=== PATIENT | male | born 1965 | race Caucasian/White ===

== ENCOUNTER 2020-11-26 21:06 | Inpatient (IN) | payer OTHER ==
[2020-11-26] MEDS ORDERED: HYDROCORTISONE SOD SUCCINATE 100 MG/2 ML VIAL IVPUSH ONE (21:27)
[2020-11-26] MEDS ORDERED: SODIUM CHLORIDE 0.9% 500 ML INFUS.BAG IV ONE (21:27)
[2020-11-26] MEDS ORDERED: HYDROCORTISONE SOD SUCCINATE 100 MG/2 ML VIAL ONE (21:53)
[2020-11-26 21:59] LABS: BASO % 0.6 % (0-2.0); EOS % 10.3 % (0-4.5); HEMATOCRIT 42.3 % (35.4-49); HEMOGLOBIN 14.8 GM/dL (11.7-16.9); LYMPH % 40.7 % (8-40); MCH 29.1 pg (25.7-33.7); MEAN CELL VOLUME 83.2 fl (80-96); MONO % 17.2 % (3.8-10.2); NEUT % 31.2 % (42.8-82.8); PLATELET COUNT 302 10^3/uL (134-434); RBC 5.08 M/mm3 (4.00-5.60); RDW 16.8 % (11.9-15.9); WHITE BLOOD COUNT 7.8 K/mm3 (4.0-10.0)
[2020-11-26 22:20] LABS: CALCIUM 8.9 mg/dL (8.5-10.1)
[2020-11-26 22:21] LABS: ALBUMIN 3.2 g/dl (3.4-5.0); BLOOD UREA NITROGEN 4.4 mg/dL (7-18)
[2020-11-26 22:24] LABS: CREATININE 0.9 mg/dL (0.55-1.3)
[2020-11-26 22:26] LABS: BILIRUBIN,TOTAL 1.3 mg/dL (0.2-1); TOT PROT 6.4 g/dl (6.4-8.2)
[2020-11-27 01:23] LABS: PH,URINE 5.5 (5.0-8.0); URINE APPEARANCE CLEAR; URINE BILIRUBIN 2+ (NEGATIVE); URINE COLOR DK YELLOW; URINE GLUCOSE (UA) NEGATIVE (NEGATIVE); URINE KETONE 1+ (NEGATIVE); URINE LEUK ESTERASE NEGATIVE (NEGATIVE); URINE NITRITE NEGATIVE (NEGATIVE); URINE PROTEIN NEGATIVE (NEGATIVE)
[2020-11-27] MEDS ORDERED: ALBUTEROL SO4 HFA INHALER IH PRN (01:54)
[2020-11-27] MEDS ORDERED: SODIUM CHLORIDE 500 ML IV STA (02:22)
[2020-11-27 03:04] VITALS: BMI 39.6
[2020-11-27] MEDS: SODIUM CHLORIDE 1,000 ML IV SCH (03:25)
[2020-11-27] MEDS: HYDROCORTISONE SOD SUCCINATE 100 MG/2 ML VIAL IVPUSH SCH ×3 (05:31→17:58)
[2020-11-27] MEDS: INSULIN SLIDING SCALE (NOVOLOG) 1 VIAL SQ SCH ×4 (06:22→22:33)
[2020-11-27 07:20] LABS: BASO % 0.6 % (0-2.0); EOS % 0.1 % (0-4.5); HEMATOCRIT 42.2 % (35.4-49); HEMOGLOBIN 14.8 GM/dL (11.7-16.9); LYMPH % 26.4 % (8-40); MEAN CELL VOLUME 82.8 fl (80-96); MONO % 6.7 % (3.8-10.2); NEUT % 66.2 % (42.8-82.8); PLATELET COUNT 266 10^3/uL (134-434); RDW 16.9 % (11.9-15.9); WHITE BLOOD COUNT 5.2 K/mm3 (4.0-10.0)
[2020-11-27 07:35] LABS: ALBUMIN 3.2 g/dl (3.4-5.0); CALCIUM 8.9 mg/dL (8.5-10.1)
[2020-11-27 07:36] LABS: BLOOD UREA NITROGEN 5.2 mg/dL (7-18); MAGNESIUM 1.9 mg/dL (1.8-2.4)
[2020-11-27 07:39] LABS: CREATININE 0.9 mg/dL (0.55-1.3)
[2020-11-27 07:40] LABS: BILIRUBIN,TOTAL 1.1 mg/dL (0.2-1); TOT PROT 6.6 g/dl (6.4-8.2)
[2020-11-27] MEDS ORDERED: PT OWN MED DRAWER 7, Y5N ONE ×4 (09:11→15:33)
[2020-11-27] MEDS: ENOXAPARIN NA (PORCINE) 40 MG/0.4 ML DISP.SYRIN SQ SCH ×2 (09:18→22:32)
[2020-11-27] MEDS: GABAPENTIN 100 MG CAPSULE PO SCH ×2 (09:19→22:32)
[2020-11-27] MEDS: SILVER SULFADIAZINE 1% TOP CREAM 50 GM JAR TP SCH ×2 (09:19→22:39)
[2020-11-27] MEDS: MUPIROCIN 2% TOPICAL OINTMENT FOR DECOLONIZATION NS SCH ×2 (09:19→22:32)
[2020-11-27] MEDS: DOCUSATE SODIUM 100 MG CAPSULE (FP) PO SCH (09:20)
[2020-11-27] MEDS: FAMOTIDINE 20 MG TABLET PO SCH ×2 (09:20→22:32)
[2020-11-27] MEDS: NYSTATIN POWDER 100,000 UNITS/GM - 15 GM TOPICAL POWDER TP SCH (09:21)
[2020-11-27] MEDS ORDERED: PATIENT'S OWN MEDICATION (NON-FORMULARY) (Levothyroxine [Synthroid -] 175 MCG Tablet) PO SCH (10:00)
[2020-11-27] MEDS ORDERED: DESMOPRESSIN ACETATE NS SCH (10:00)
[2020-11-27] MEDS ORDERED: ENOXAPARIN NA (PORCINE) 40 MG/0.4 ML DISP.SYRIN SQ SCH (10:00)
[2020-11-27] MEDS ORDERED: ASPIRIN 325 MG TABLET PO SCH (10:00)
[2020-11-27] MEDS ORDERED: [UNRECOGNIZED DRUG - OTHER] NS SCH (10:00)
[2020-11-27] MEDS ORDERED: NYSTATIN POWDER 100,000 UNITS/GM - 15 GM TOPICAL POWDER TP SCH (10:00)
[2020-11-27] MEDS: ASPIRIN 81 MG CHEWABLE TABLETS PO SCH (10:20)
[2020-11-27] MEDS: DESMOPRESSIN ACETATE 0.1 MG TABLET PO SCH (15:37)
[2020-11-27] MEDS ORDERED: MELATONIN 1 MG TABLET PO SCH (22:00)
[2020-11-27] MEDS ORDERED: SENNOSIDES 8.6MG TABLET (FP) PO SCH (22:00)
[2020-11-27] MEDS ORDERED: ATORVASTATIN CA 40 MG TABLET (FP) PO SCH (22:00)
[2020-11-27] MEDS ORDERED: CHLORHEXIDINE GLUCONATE 4% CLEANSER FOR DECOLONIZATION TP SCH (22:00)
[2020-11-27] MEDS: LEVOTHYROXINE PO SCH (22:32)
[2020-11-28] MEDS: SODIUM CHLORIDE 1,000 ML IV SCH ×2 (06:50→10:36)
[2020-11-28] MEDS: INSULIN SLIDING SCALE (NOVOLOG) 1 VIAL SQ SCH ×4 (07:01→22:02)
[2020-11-28] MEDS: LEVOTHYROXINE PO SCH (08:00)
[2020-11-28] MEDS ORDERED: PT OWN MED DRAWER 7, Y5N ONE ×2 (09:39→22:00)
[2020-11-28] MEDS: DOCUSATE SODIUM 100 MG CAPSULE (FP) PO SCH (09:42)
[2020-11-28] MEDS: DESMOPRESSIN ACETATE 0.1 MG TABLET PO SCH (09:43)
[2020-11-28] MEDS: GABAPENTIN 100 MG CAPSULE PO SCH ×2 (09:44→22:01)
[2020-11-28] MEDS: ENOXAPARIN NA (PORCINE) 40 MG/0.4 ML DISP.SYRIN SQ SCH ×2 (09:44→22:03)
[2020-11-28] MEDS: ASPIRIN 81 MG CHEWABLE TABLETS PO SCH (09:44)
[2020-11-28] MEDS: FAMOTIDINE 20 MG TABLET PO SCH ×2 (09:44→22:02)
[2020-11-28] MEDS: SILVER SULFADIAZINE 1% TOP CREAM 50 GM JAR TP SCH ×2 (09:46→22:02)
[2020-11-28] MEDS: NYSTATIN POWDER 100,000 UNITS/GM - 15 GM TOPICAL POWDER TP SCH (09:46)
[2020-11-28] MEDS ORDERED: HYDROCORTISONE SOD SUCCINATE 100 MG/2 ML VIAL IVPUSH SCH (10:00)
[2020-11-28] MEDS: MUPIROCIN 2% TOPICAL OINTMENT FOR DECOLONIZATION NS SCH (10:24)
[2020-11-28] MEDS ORDERED: ALBUTEROL SO4 HFA INHALER IH PRN (10:36)
[2020-11-28] MEDS ORDERED: INSULIN SLIDING SCALE (NOVOLOG) 1 VIAL SQ SCH (11:00)
[2020-11-28] MEDS: AMINO ACIDS/PROTEIN HYDROLYS 30 ML LIQUID.PKT PO SCH (18:10)
[2020-11-28] MEDS ORDERED: CHLORHEXIDINE GLUCONATE 4% CLEANSER FOR DECOLONIZATION TP SCH (22:00)
[2020-11-28] MEDS ORDERED: MUPIROCIN 2% TOPICAL OINTMENT FOR DECOLONIZATION NS SCH (22:00)
[2020-11-28] MEDS ORDERED: MELATONIN 5 MG, MELATONIN 1 MG PO SCH (22:00)
[2020-11-28] MEDS: ATORVASTATIN CA 40 MG TABLET (FP) PO SCH (22:01)
[2020-11-28] MEDS: SENNOSIDES 8.6MG TABLET (FP) PO SCH (22:02)
[2020-11-28] MEDS: HYDROCORTISONE SOD SUCCINATE 100 MG/2 ML VIAL IVPUSH SCH (22:02)
[2020-11-28] MEDS: MELATONIN 5 MG, MELATONIN 1 MG PO SCH (22:02)
[2020-11-29] MEDS ORDERED: LEVOTHYROXINE NA 100 MCG TABLET (FP) ONE (06:07)
[2020-11-29] MEDS ORDERED: LEVOTHYROXINE NA 75 MCG TABLET (FP) ONE (06:08)
[2020-11-29] MEDS: LEVOTHYROXINE PO SCH (06:09)
[2020-11-29] MEDS: SODIUM CHLORIDE 1,000 ML IV SCH ×2 (06:09→11:20)
[2020-11-29] MEDS: INSULIN SLIDING SCALE (NOVOLOG) 1 VIAL SQ SCH ×4 (06:20→22:15)
[2020-11-29] MEDS ORDERED: PT OWN MED DRAWER 7, Y5N ONE ×2 (09:49→21:52)
[2020-11-29] MEDS: GABAPENTIN 100 MG CAPSULE PO SCH ×2 (10:05→22:10)
[2020-11-29] MEDS: DOCUSATE SODIUM 100 MG CAPSULE (FP) PO SCH (10:05)
[2020-11-29] MEDS: ASPIRIN 81 MG CHEWABLE TABLETS PO SCH (10:05)
[2020-11-29] MEDS: ENOXAPARIN NA (PORCINE) 40 MG/0.4 ML DISP.SYRIN SQ SCH ×2 (10:05→22:10)
[2020-11-29] MEDS: FAMOTIDINE 20 MG TABLET PO SCH ×2 (10:06→22:10)
[2020-11-29] MEDS: NYSTATIN POWDER 100,000 UNITS/GM - 15 GM TOPICAL POWDER TP SCH (10:06)
[2020-11-29] MEDS: AMINO ACIDS/PROTEIN HYDROLYS 30 ML LIQUID.PKT PO SCH ×3 (10:06→17:13)
[2020-11-29] MEDS: DESMOPRESSIN ACETATE 0.1 MG TABLET PO SCH (10:07)
[2020-11-29] MEDS: SILVER SULFADIAZINE 1% TOP CREAM 50 GM JAR TP SCH ×2 (10:07→22:15)
[2020-11-29] MEDS: HYDROCORTISONE SOD SUCCINATE 100 MG/2 ML VIAL IVPUSH SCH ×2 (11:20→22:11)
[2020-11-29] MEDS ORDERED: MELATONIN 1 MG TABLET PO SCH (22:00)
[2020-11-29] MEDS: ATORVASTATIN CA 40 MG TABLET (FP) PO SCH (22:10)
[2020-11-29] MEDS: SENNOSIDES 8.6MG TABLET (FP) PO SCH (22:15)
[2020-11-30] MEDS ORDERED: ACETAMINOPHEN 325 MG TABLET (FP) PO ONE (05:01)
[2020-11-30] MEDS ORDERED: LEVOTHYROXINE NA 100 MCG TABLET (FP) ONE (05:44)
[2020-11-30] MEDS ORDERED: LEVOTHYROXINE NA 75 MCG TABLET (FP) ONE (05:44)
[2020-11-30] MEDS: LEVOTHYROXINE PO SCH (06:13)
[2020-11-30] MEDS: SODIUM CHLORIDE 1,000 ML IV SCH ×2 (06:13→11:33)
[2020-11-30] MEDS: INSULIN SLIDING SCALE (NOVOLOG) 1 VIAL SQ SCH ×4 (06:17→22:07)
[2020-11-30] MEDS: AMINO ACIDS/PROTEIN HYDROLYS 30 ML LIQUID.PKT PO SCH ×4 (09:17→17:50)
[2020-11-30] MEDS ORDERED: PT OWN MED DRAWER 7, Y5N ONE (10:00)
[2020-11-30] MEDS: DESMOPRESSIN ACETATE 0.1 MG TABLET PO SCH (10:19)
[2020-11-30] MEDS: ASPIRIN 81 MG CHEWABLE TABLETS PO SCH (10:19)
[2020-11-30] MEDS: HYDROCORTISONE SOD SUCCINATE 100 MG/2 ML VIAL IVPUSH SCH (10:19)
[2020-11-30] MEDS: ENOXAPARIN NA (PORCINE) 40 MG/0.4 ML DISP.SYRIN SQ SCH ×2 (10:19→22:06)
[2020-11-30] MEDS: SILVER SULFADIAZINE 1% TOP CREAM 50 GM JAR TP SCH ×2 (10:20→22:07)
[2020-11-30] MEDS: GABAPENTIN 100 MG CAPSULE PO SCH ×2 (10:20→22:06)
[2020-11-30] MEDS: DOCUSATE SODIUM 100 MG CAPSULE (FP) PO SCH (10:20)
[2020-11-30] MEDS: FAMOTIDINE 20 MG TABLET PO SCH ×2 (10:20→22:06)
[2020-11-30] MEDS: NYSTATIN POWDER 100,000 UNITS/GM - 15 GM TOPICAL POWDER TP SCH (10:20)
[2020-11-30 17:08] LABS: RENIN ACTIVITY(PRA) 24.623 ng/mL/hr (0.167-5.380)
[2020-11-30] MEDS ORDERED: MELATONIN 5 MG TABLETS ONE (20:59)
[2020-11-30] MEDS ORDERED: MELATONIN 1 MG TABLET ONE (21:00)
[2020-11-30] MEDS: SENNOSIDES 8.6MG TABLET (FP) PO SCH (22:06)
[2020-11-30] MEDS: ATORVASTATIN CA 40 MG TABLET (FP) PO SCH (22:06)
[2020-11-30] MEDS: MELATONIN 5 MG, MELATONIN 1 MG PO SCH (22:06)
[2020-12-01] MEDS: SODIUM CHLORIDE 1,000 ML IV SCH ×2 (02:11→12:17)
[2020-12-01] MEDS ORDERED: LEVOTHYROXINE NA 75 MCG TABLET (FP) ONE (06:21)
[2020-12-01] MEDS ORDERED: LEVOTHYROXINE NA 100 MCG TABLET (FP) ONE (06:21)
[2020-12-01] MEDS: LEVOTHYROXINE PO SCH (06:31)
[2020-12-01] MEDS: INSULIN SLIDING SCALE (NOVOLOG) 1 VIAL SQ SCH ×3 (06:36→16:34)
[2020-12-01] MEDS: AMINO ACIDS/PROTEIN HYDROLYS 30 ML LIQUID.PKT PO SCH ×4 (08:25→17:41)
[2020-12-01] MEDS ORDERED: PT OWN MED DRAWER 7, Y5N ONE ×2 (09:29→12:15)
[2020-12-01] MEDS: ASPIRIN 81 MG CHEWABLE TABLETS PO SCH (09:31)
[2020-12-01] MEDS: DESMOPRESSIN ACETATE 0.1 MG TABLET PO SCH (09:32)
[2020-12-01] MEDS: GABAPENTIN 100 MG CAPSULE PO SCH (09:32)
[2020-12-01] MEDS: DOCUSATE SODIUM 100 MG CAPSULE (FP) PO SCH (09:32)
[2020-12-01] MEDS: FAMOTIDINE 20 MG TABLET PO SCH (09:33)
[2020-12-01] MEDS: ENOXAPARIN NA (PORCINE) 40 MG/0.4 ML DISP.SYRIN SQ SCH (09:33)
[2020-12-01] MEDS: NYSTATIN POWDER 100,000 UNITS/GM - 15 GM TOPICAL POWDER TP SCH (09:33)
[2020-12-01] MEDS: SILVER SULFADIAZINE 1% TOP CREAM 50 GM JAR TP SCH (11:27)
[2020-12-01] MEDS ORDERED: HYDROCORTISONE 20 MG TABLET PO SCH (11:45)
[2020-12-01 15:20] VITALS: BP 140/81; PULSE 90; TEMP 98.4
[2020-12-01 16:35] LABS: BASO % 0.4 % (0-2.0); HEMATOCRIT 37.7 % (35.4-49); HEMOGLOBIN 13.3 GM/dL (11.7-16.9); LYMPH % 31.6 % (8-40); MCH 29.4 pg (25.7-33.7); MCHC 35.2 g/dl (32.0-35.9); MEAN CELL VOLUME 83.5 fl (80-96); MEAN PLT VOLUME 8.8 fl (7.5-11.1); MONO % 12.1 % (3.8-10.2); NEUT % 50.9 % (42.8-82.8); PLATELET COUNT 224 10^3/uL (134-434); RBC 4.52 M/mm3 (4.00-5.60); RDW 16.8 % (11.9-15.9); WHITE BLOOD COUNT 7.2 K/mm3 (4.0-10.0)
[2020-12-01 17:00] LABS: ALBUMIN 3.4 g/dl (3.4-5.0); BLOOD UREA NITROGEN 5.6 mg/dL (7-18); CALCIUM 8.4 mg/dL (8.5-10.1); MAGNESIUM 2.1 mg/dL (1.8-2.4)
[2020-12-01 17:04] LABS: CREATININE 0.8 mg/dL (0.55-1.3); PHOSPHOROUS 3.1 mg/dL (2.5-4.9)
[2020-12-01 17:05] LABS: BILIRUBIN,TOTAL 0.6 mg/dL (0.2-1); TOT PROT 6.3 g/dl (6.4-8.2)
== END 2020-12-01 20:45 | DRG 644 ==
LOC: JER 21:06 → JICU 22:29 → JERBED 11-27 00:17 → JICU 11-27 02:37 → J8W 11-29 00:20
PROVIDERS: ADMIT Internal Medicine Pulmonary Disease; ATTEND Internal Medicine
DX: E27.49 Other adrenocortical insufficiency (principal); I69.354 Hemiplegia and hemiparesis following cerebral infarction affecting left non-dominant side; E87.1 Hypo-osmolality and hyponatremia; E23.2 Diabetes insipidus; E23.0 Hypopituitarism; E27.2 Addisonian crisis; E66.01 Morbid (severe) obesity due to excess calories; Z86.16 Personal history of COVID-19; I45.10 Unspecified right bundle-branch block; R94.31 Abnormal electrocardiogram [ECG] [EKG]; R21 Rash and other nonspecific skin eruption; Z68.39 Body mass index [BMI] 39.0-39.9, adult; R13.10 Dysphagia, unspecified; R27.0 Ataxia, unspecified
CPT/HCPCS: 36415; 71045-TC-FY; 80053; 81003; 82024; 82088; 82533; 82962; 83036; 83735; 84100; 84244; 84439; 84443; 85025; 93005; 93010; 97116-GP; 97163-GP; 99285-25; C9803; U0003; U0005

== ENCOUNTER 2020-12-28 14:50 | Inpatient (IN) | payer OTHER ==
[2020-12-28] MEDS ORDERED: ACETAMINOPHEN 1000 MG/100 ML VIAL (NON FORMULARY) IVPB ONE (16:57)
[2020-12-28 18:03] LABS: BASO % 0.3 % (0-2.0); EOS % 3.6 % (0-4.5); HEMATOCRIT 31.1 % (35.4-49); HEMOGLOBIN 11.2 GM/dL (11.7-16.9); LYMPH % 23.8 % (8-40); MEAN CELL VOLUME 83.2 fl (80-96); MEAN PLT VOLUME 7.3 fl (7.5-11.1); MONO % 10.8 % (3.8-10.2); NEUT % 61.5 % (42.8-82.8); PLATELET COUNT 248 10^3/uL (134-434); RBC 3.74 M/mm3 (4.00-5.60); RDW 16.4 % (11.9-15.9); WHITE BLOOD COUNT 8.8 K/mm3 (4.0-10.0)
[2020-12-28 18:06] LABS: PH,URINE 6.5 (5.0-8.0); URINE APPEARANCE CLEAR; URINE BILIRUBIN NEGATIVE (NEGATIVE); URINE COLOR YELLOW; URINE GLUCOSE (UA) NEGATIVE (NEGATIVE); URINE KETONE NEGATIVE (NEGATIVE); URINE LEUK ESTERASE NEGATIVE (NEGATIVE); URINE NITRITE NEGATIVE (NEGATIVE); URINE PROTEIN NEGATIVE (NEGATIVE); URINE UROBILINOGEN 0.2 mg/dL (0.2-1.0)
[2020-12-28 18:19] LABS: INR 1.1 (0.83-1.09); PROTHROMBIN TIME (PATIENT) 13.3 SEC (9.7-13.0)
[2020-12-28 18:30] LABS: CALCIUM 8.2 mg/dL (8.5-10.1)
[2020-12-28 18:31] LABS: BLOOD UREA NITROGEN 10.5 mg/dL (7-18)
[2020-12-28 18:34] LABS: CREATININE 0.7 mg/dL (0.55-1.3)
[2020-12-28 18:36] LABS: BILIRUBIN,TOTAL 0.6 mg/dL (0.2-1); TOT PROT 5.8 g/dl (6.4-8.2)
[2020-12-28] MEDS ORDERED: SODIUM CHLORIDE 1,000 ML IV SCH (23:30)
[2020-12-29 00:07] LABS: CALCIUM 7.9 mg/dL (8.5-10.1)
[2020-12-29 00:08] LABS: BLOOD UREA NITROGEN 8.5 mg/dL (7-18)
[2020-12-29 00:11] LABS: CREATININE 0.6 mg/dL (0.55-1.3)
[2020-12-29] MEDS ORDERED: SODIUM CHLORIDE 1,000 ML IV SCH ×2 (02:22→15:28)
[2020-12-29 07:07] LABS: BLOOD UREA NITROGEN 7.2 mg/dL (7-18); CALCIUM 8.1 mg/dL (8.5-10.1)
[2020-12-29 07:09] LABS: MAGNESIUM 1.9 mg/dL (1.8-2.4)
[2020-12-29 07:11] LABS: CREATININE 0.7 mg/dL (0.55-1.3); PHOSPHOROUS 3.9 mg/dL (2.5-4.9)
[2020-12-29] MEDS: LEVOTHYROXINE PO SCH (10:00)
[2020-12-29] MEDS ORDERED: DESMOPRESSIN ACETATE NS SCH (10:00)
[2020-12-29] MEDS ORDERED: PATIENT'S OWN MEDICATION (NON-FORMULARY) (Levothyroxine [Synthroid -] 175 MCG Tablet) PO SCH (10:00)
[2020-12-29] MEDS ORDERED: [UNRECOGNIZED DRUG - OTHER] NS SCH (10:00)
[2020-12-29 10:02] LABS: BASO % 0.3 % (0-2.0); EOS % 5.9 % (0-4.5); HEMATOCRIT 33.2 % (35.4-49); HEMOGLOBIN 12.1 GM/dL (11.7-16.9); LYMPH % 29.6 % (8-40); MCH 30.4 pg (25.7-33.7); MCHC 36.4 g/dl (32.0-35.9); MEAN CELL VOLUME 83.6 fl (80-96); MEAN PLT VOLUME 7.9 fl (7.5-11.1); MONO % 13.3 % (3.8-10.2); NEUT % 50.9 % (42.8-82.8); PLATELET COUNT 274 10^3/uL (134-434); RBC 3.97 M/mm3 (4.00-5.60); RDW 16.7 % (11.9-15.9); RETICULOCYTES 2.35 % (0.5-1.5); WHITE BLOOD COUNT 9.3 K/mm3 (4.0-10.0)
[2020-12-29] MEDS ORDERED: FAMOTIDINE 20 MG TABLET ONE (10:44)
[2020-12-29] MEDS ORDERED: GABAPENTIN 100 MG CAPSULE ONE (10:45)
[2020-12-29] MEDS ORDERED: ENOXAPARIN NA (PORCINE) 40 MG/0.4 ML DISP.SYRIN SQ ONE (10:45)
[2020-12-29] MEDS ORDERED: ATORVASTATIN CA 40 MG TABLET (FP) ONE (10:45)
[2020-12-29] MEDS: FAMOTIDINE 20 MG TABLET PO SCH ×2 (10:55→21:38)
[2020-12-29] MEDS: ENOXAPARIN NA (PORCINE) 40 MG/0.4 ML DISP.SYRIN SQ SCH (10:55)
[2020-12-29] MEDS: GABAPENTIN 100 MG CAPSULE PO SCH ×2 (10:55→21:37)
[2020-12-29 11:51] LABS: CALCIUM 8.3 mg/dL (8.5-10.1)
[2020-12-29 11:52] LABS: BLOOD UREA NITROGEN 7.3 mg/dL (7-18)
[2020-12-29 11:55] LABS: CREATININE 0.8 mg/dL (0.55-1.3)
[2020-12-29] MEDS ORDERED: MECLIZINE HCL 25 MG TABLET (FP) PO PRN (15:31)
[2020-12-29] MEDS ORDERED: NITROGLYCERIN SUBLINGUAL 1/150 0.4 MG TAB SL PRN (15:31)
[2020-12-29] MEDS ORDERED: BISACODYL 10 MG SUPP.RECT RC PRN (15:31)
[2020-12-29] MEDS ORDERED: ALBUTEROL SO4 HFA INHALER IH PRN (15:31)
[2020-12-29] MEDS: HYDROCORTISONE 20 MG TABLET PO SCH ×2 (17:32→21:38)
[2020-12-29] MEDS ORDERED: PT OWN MED DRAWER 7, Y5N ONE (21:19)
[2020-12-29] MEDS: SENNOSIDES 8.6MG TABLET (FP) PO SCH (21:37)
[2020-12-29] MEDS: MELATONIN 5 MG TABLETS PO SCH (21:37)
[2020-12-29] MEDS: ATORVASTATIN CA 40 MG TABLET (FP) PO SCH (21:38)
[2020-12-29] MEDS: SILVER SULFADIAZINE 1% TOP CREAM 50 GM JAR TP SCH (21:38)
[2020-12-29] MEDS: TOLNAFTATE 1% POWDER 45 GM POW TP SCH (21:39)
[2020-12-29 21:58] LABS: BLOOD UREA NITROGEN 8.3 mg/dL (7-18)
[2020-12-29 22:01] LABS: CREATININE 0.8 mg/dL (0.55-1.3)
[2020-12-30] MEDS ORDERED: LEVOTHYROXINE NA 150 MCG TABLET ONE (06:11)
[2020-12-30] MEDS ORDERED: LEVOTHYROXINE NA 125 MCG TABLET (FP) ONE (06:12)
[2020-12-30] MEDS: LEVOTHYROXINE PO SCH (06:30)
[2020-12-30] MEDS ORDERED: PT OWN MED DRAWER 7, Y5N ONE (06:54)
[2020-12-30] MEDS ORDERED: LYTES/YERBA SANTA 240 ML BOTTLE MM SCH (10:00)
[2020-12-30] MEDS: ASPIRIN COATED 81 MG TABLET.EC PO SCH (10:35)
[2020-12-30] MEDS: GABAPENTIN 100 MG CAPSULE PO SCH ×2 (10:35→22:19)
[2020-12-30] MEDS: HYDROCORTISONE 20 MG TABLET PO SCH ×2 (10:35→22:53)
[2020-12-30] MEDS: FAMOTIDINE 20 MG TABLET PO SCH ×2 (10:35→22:19)
[2020-12-30] MEDS: ENOXAPARIN NA (PORCINE) 40 MG/0.4 ML DISP.SYRIN SQ SCH (10:35)
[2020-12-30] MEDS: POLYETHYLENE GLYCOL (HEALTHYLAX) 3350 17 GM PACKET PO SCH (10:35)
[2020-12-30] MEDS: DOCUSATE SODIUM 100 MG CAPSULE (FP) PO SCH (10:35)
[2020-12-30] MEDS: SILVER SULFADIAZINE 1% TOP CREAM 50 GM JAR TP SCH ×2 (10:36→22:27)
[2020-12-30] MEDS: MINERAL OIL/PETROLAT/WATER TOPICAL CREAM 113 GM JAR TP SCH (10:36)
[2020-12-30] MEDS ORDERED: HYDROCORTISONE 1% TOPICAL CREAM 30 GM TUBE TP PRN (10:37)
[2020-12-30] MEDS: TOLNAFTATE 1% POWDER 45 GM POW TP SCH ×2 (10:37→22:28)
[2020-12-30] MEDS: MAG HYDROX/AL HYDROX/SIMETH 30 ML UNIT-DOSE CUP PO SCH (10:44)
[2020-12-30 12:03] LABS: HEMATOCRIT 36.9 % (35.4-49); HEMOGLOBIN 13.1 GM/dL (11.7-16.9); MCHC 35.5 g/dl (32.0-35.9); MEAN CELL VOLUME 84.5 fl (80-96); MEAN PLT VOLUME 7.8 fl (7.5-11.1); PLATELET COUNT 343 10^3/uL (134-434); RBC 4.37 M/mm3 (4.00-5.60); WHITE BLOOD COUNT 11.8 K/mm3 (4.0-10.0)
[2020-12-30] MEDS: LYTES/YERBA SANTA 240 ML BOTTLE MM SCH ×2 (12:08→17:12)
[2020-12-30] MEDS: HYDROCORTISONE 1% TOPICAL CREAM 30 GM TUBE TP SCH ×2 (12:08→22:53)
[2020-12-30 12:23] LABS: BLOOD UREA NITROGEN 9.2 mg/dL (7-18); CALCIUM 9.2 mg/dL (8.5-10.1); MAGNESIUM 2.6 mg/dL (1.8-2.4)
[2020-12-30 12:26] LABS: CREATININE 0.8 mg/dL (0.55-1.3); PHOSPHOROUS 4.4 mg/dL (2.5-4.9)
[2020-12-30] MEDS ORDERED: DESMOPRESSIN ACETATE 0.1 MG TABLET PO SCH ×3 (13:15→16:45)
[2020-12-30 16:40] VITALS: BMI 36.7
[2020-12-30] MEDS: ACETAMINOPHEN 325 MG TABLET (FP) PO PRN (18:14)
[2020-12-30 19:40] LABS: CALCIUM 8.7 mg/dL (8.5-10.1)
[2020-12-30 19:41] LABS: BLOOD UREA NITROGEN 8.4 mg/dL (7-18)
[2020-12-30 19:45] LABS: CREATININE 0.9 mg/dL (0.55-1.3)
[2020-12-30] MEDS: MELATONIN 5 MG TABLETS PO SCH (22:19)
[2020-12-30] MEDS: SENNOSIDES 8.6MG TABLET (FP) PO SCH (22:19)
[2020-12-30] MEDS: ATORVASTATIN CA 40 MG TABLET (FP) PO SCH (22:19)
[2020-12-31] MEDS: LYTES/YERBA SANTA 240 ML BOTTLE MM SCH ×4 (00:30→19:02)
[2020-12-31] MEDS ORDERED: LEVOTHYROXINE NA 150 MCG TABLET ONE (06:20)
[2020-12-31] MEDS ORDERED: LEVOTHYROXINE NA 125 MCG TABLET (FP) ONE (06:21)
[2020-12-31] MEDS: LEVOTHYROXINE PO SCH (06:49)
[2020-12-31] MEDS: AMINO ACIDS/PROTEIN HYDROLYS 30 ML LIQUID.PKT PO SCH (08:10)
[2020-12-31] MEDS: ASPIRIN COATED 81 MG TABLET.EC PO SCH (09:54)
[2020-12-31] MEDS: ENOXAPARIN NA (PORCINE) 40 MG/0.4 ML DISP.SYRIN SQ SCH (09:54)
[2020-12-31] MEDS: MAG HYDROX/AL HYDROX/SIMETH 30 ML UNIT-DOSE CUP PO SCH (09:54)
[2020-12-31] MEDS: GABAPENTIN 100 MG CAPSULE PO SCH ×2 (09:55→21:33)
[2020-12-31] MEDS: FAMOTIDINE 20 MG TABLET PO SCH ×2 (09:55→21:33)
[2020-12-31] MEDS: HYDROCORTISONE 20 MG TABLET PO SCH ×2 (09:55→21:59)
[2020-12-31] MEDS: DESMOPRESSIN ACETATE 0.1 MG TABLET PO SCH (09:55)
[2020-12-31] MEDS: DOCUSATE SODIUM 100 MG CAPSULE (FP) PO SCH (09:55)
[2020-12-31] MEDS: HYDROCORTISONE 1% TOPICAL CREAM 30 GM TUBE TP SCH ×2 (09:57→21:33)
[2020-12-31] MEDS: MINERAL OIL/PETROLAT/WATER TOPICAL CREAM 113 GM JAR TP SCH (09:57)
[2020-12-31] MEDS: TOLNAFTATE 1% POWDER 45 GM POW TP SCH ×2 (09:58→21:33)
[2020-12-31] MEDS: SILVER SULFADIAZINE 1% TOP CREAM 50 GM JAR TP SCH ×2 (09:58→21:33)
[2020-12-31] MEDS: POLYETHYLENE GLYCOL (HEALTHYLAX) 3350 17 GM PACKET PO SCH (09:58)
[2020-12-31] MEDS ORDERED: VANCOMYCIN 2,000 MG in DEXTROSE 5%-WATER - 500 ML IVPB ONE (10:00)
[2020-12-31] MEDS: ACETAMINOPHEN 325 MG TABLET (FP) PO PRN ×2 (10:12→21:35)
[2020-12-31 11:25] LABS: HEMATOCRIT 39.2 % (35.4-49); HEMOGLOBIN 13.7 GM/dL (11.7-16.9); MCH 30.1 pg (25.7-33.7); MEAN PLT VOLUME 7.9 fl (7.5-11.1); PLATELET COUNT 333 10^3/uL (134-434); RBC 4.56 M/mm3 (4.00-5.60); RDW 16.9 % (11.9-15.9); WHITE BLOOD COUNT 14.5 K/mm3 (4.0-10.0)
[2020-12-31 11:50] LABS: BLOOD UREA NITROGEN 9.6 mg/dL (7-18); CALCIUM 9.1 mg/dL (8.5-10.1)
[2020-12-31 11:51] LABS: MAGNESIUM 2.6 mg/dL (1.8-2.4)
[2020-12-31 11:52] LABS: CREATININE 1.2 mg/dL (0.55-1.3)
[2020-12-31 11:53] LABS: PHOSPHOROUS 4.1 mg/dL (2.5-4.9)
[2020-12-31] MEDS ORDERED: SODIUM CHLORIDE 1,000 ML IV SCH (18:00)
[2020-12-31] MEDS: MELATONIN 5 MG TABLETS PO SCH (21:33)
[2020-12-31] MEDS: VANCOMYCIN PREMIX 1.5 GM 1,500 MG/300 ML BAG IVPB SCH (21:33)
[2020-12-31] MEDS: SENNOSIDES 8.6MG TABLET (FP) PO SCH (21:33)
[2020-12-31] MEDS: ATORVASTATIN CA 40 MG TABLET (FP) PO SCH (21:33)
[2021-01-01] MEDS: LYTES/YERBA SANTA 240 ML BOTTLE MM SCH ×3 (00:10→21:16)
[2021-01-01] MEDS ORDERED: LEVOTHYROXINE NA 125 MCG TABLET (FP) ONE (06:26)
[2021-01-01] MEDS ORDERED: LEVOTHYROXINE NA 150 MCG TABLET ONE (06:26)
[2021-01-01] MEDS: LEVOTHYROXINE PO SCH (06:27)
[2021-01-01] MEDS ORDERED: INSULIN (LEVEMIR) 100 UNITS/ML UNITS SQ ONE (06:39)
[2021-01-01] MEDS ORDERED: VANCOMYCIN 1 GRAM (PRE-DOCKED) 1,000 MG/250 ML BAG IVPB SCH (10:00)
[2021-01-01] MEDS ORDERED: PT OWN MED DRAWER 7, Y5N ONE ×3 (10:07→21:12)
[2021-01-01] MEDS: GABAPENTIN 100 MG CAPSULE PO SCH ×2 (10:17→21:15)
[2021-01-01] MEDS: FAMOTIDINE 20 MG TABLET PO SCH ×2 (10:17→21:16)
[2021-01-01] MEDS: VANCOMYCIN PREMIX 1.5 GM 1,500 MG/300 ML BAG IVPB SCH (10:17)
[2021-01-01] MEDS: TOLNAFTATE 1% POWDER 45 GM POW TP SCH ×2 (10:17→21:17)
[2021-01-01] MEDS: HYDROCORTISONE 20 MG TABLET PO SCH ×2 (10:18→21:18)
[2021-01-01] MEDS: MINERAL OIL/PETROLAT/WATER TOPICAL CREAM 113 GM JAR TP SCH (10:18)
[2021-01-01] MEDS: POLYETHYLENE GLYCOL (HEALTHYLAX) 3350 17 GM PACKET PO SCH (10:18)
[2021-01-01] MEDS: ASPIRIN COATED 81 MG TABLET.EC PO SCH (10:18)
[2021-01-01] MEDS: DESMOPRESSIN ACETATE 0.1 MG TABLET PO SCH (10:18)
[2021-01-01] MEDS: ENOXAPARIN NA (PORCINE) 40 MG/0.4 ML DISP.SYRIN SQ SCH (10:18)
[2021-01-01] MEDS: MAG HYDROX/AL HYDROX/SIMETH 30 ML UNIT-DOSE CUP PO SCH (10:18)
[2021-01-01] MEDS: DOCUSATE SODIUM 100 MG CAPSULE (FP) PO SCH (10:18)
[2021-01-01] MEDS: HYDROCORTISONE 1% TOPICAL CREAM 30 GM TUBE TP SCH ×2 (10:18→21:16)
[2021-01-01] MEDS: SILVER SULFADIAZINE 1% TOP CREAM 50 GM JAR TP SCH ×2 (10:19→21:17)
[2021-01-01] MEDS: AMINO ACIDS/PROTEIN HYDROLYS 30 ML LIQUID.PKT PO SCH (10:19)
[2021-01-01 16:18] LABS: HEMATOCRIT 30.8 % (35.4-49); MCH 30.5 pg (25.7-33.7); MCHC 35.7 g/dl (32.0-35.9); MEAN CELL VOLUME 85.2 fl (80-96); MEAN PLT VOLUME 7.8 fl (7.5-11.1); PLATELET COUNT 284 10^3/uL (134-434); RBC 3.62 M/mm3 (4.00-5.60); RDW 16.2 % (11.9-15.9); WHITE BLOOD COUNT 10.4 K/mm3 (4.0-10.0)
[2021-01-01 16:51] LABS: BLOOD UREA NITROGEN 10.3 mg/dL (7-18); CALCIUM 8.1 mg/dL (8.5-10.1)
[2021-01-01 16:55] LABS: CREATININE 0.9 mg/dL (0.55-1.3); PHOSPHOROUS 4.3 mg/dL (2.5-4.9)
[2021-01-01] MEDS: CLINDAMYCIN 300 MG PREMIX IVPB 300 MG/50 ML BAG IVPB SCH ×2 (20:04→21:16)
[2021-01-01] MEDS ORDERED: CLINDAMYCIN 300 MG PREMIX IVPB 300 MG/50 ML BAG IVPB SCH (21:00)
[2021-01-01] MEDS: MELATONIN 5 MG TABLETS PO SCH (21:15)
[2021-01-01] MEDS: SENNOSIDES 8.6MG TABLET (FP) PO SCH (21:15)
[2021-01-01] MEDS: ATORVASTATIN CA 40 MG TABLET (FP) PO SCH (21:16)
[2021-01-02] MEDS: CLINDAMYCIN 300 MG PREMIX IVPB 300 MG/50 ML BAG IVPB SCH ×2 (02:01→09:16)
[2021-01-02] MEDS: LYTES/YERBA SANTA 240 ML BOTTLE MM SCH ×3 (02:04→18:31)
[2021-01-02] MEDS ORDERED: LEVOTHYROXINE NA 150 MCG TABLET ONE (05:54)
[2021-01-02] MEDS ORDERED: LEVOTHYROXINE NA 125 MCG TABLET (FP) ONE (05:54)
[2021-01-02] MEDS: LEVOTHYROXINE PO SCH (06:05)
[2021-01-02] MEDS ORDERED: PT OWN MED DRAWER 7, Y5N ONE ×2 (09:05→21:02)
[2021-01-02] MEDS: ENOXAPARIN NA (PORCINE) 40 MG/0.4 ML DISP.SYRIN SQ SCH (09:26)
[2021-01-02] MEDS: AMINO ACIDS/PROTEIN HYDROLYS 30 ML LIQUID.PKT PO SCH (09:26)
[2021-01-02] MEDS: HYDROCORTISONE 1% TOPICAL CREAM 30 GM TUBE TP SCH ×2 (09:28→21:12)
[2021-01-02] MEDS: DOCUSATE SODIUM 100 MG CAPSULE (FP) PO SCH (09:28)
[2021-01-02] MEDS: MINERAL OIL/PETROLAT/WATER TOPICAL CREAM 113 GM JAR TP SCH (09:28)
[2021-01-02] MEDS: POLYETHYLENE GLYCOL (HEALTHYLAX) 3350 17 GM PACKET PO SCH (09:28)
[2021-01-02] MEDS: GABAPENTIN 100 MG CAPSULE PO SCH ×2 (09:28→21:11)
[2021-01-02] MEDS: ASPIRIN COATED 81 MG TABLET.EC PO SCH (09:28)
[2021-01-02] MEDS: FAMOTIDINE 20 MG TABLET PO SCH ×2 (09:28→21:11)
[2021-01-02] MEDS: DESMOPRESSIN ACETATE 0.1 MG TABLET PO SCH (09:29)
[2021-01-02] MEDS: SILVER SULFADIAZINE 1% TOP CREAM 50 GM JAR TP SCH ×2 (09:29→21:13)
[2021-01-02] MEDS: TOLNAFTATE 1% POWDER 45 GM POW TP SCH ×2 (09:29→21:13)
[2021-01-02] MEDS: MAG HYDROX/AL HYDROX/SIMETH 30 ML UNIT-DOSE CUP PO SCH (09:29)
[2021-01-02] MEDS: HYDROCORTISONE 20 MG TABLET PO SCH ×2 (09:29→21:12)
[2021-01-02] MEDS ORDERED: SODIUM CHLORIDE IVPB ONE (14:00)
[2021-01-02] MEDS ORDERED: DAPTOMYCIN IVPB ONE (14:00)
[2021-01-02] MEDS: ACETAMINOPHEN 325 MG TABLET (FP) PO PRN (21:10)
[2021-01-02] MEDS: MELATONIN 5 MG TABLETS PO SCH (21:11)
[2021-01-02] MEDS: SENNOSIDES 8.6MG TABLET (FP) PO SCH (21:12)
[2021-01-03] MEDS: LYTES/YERBA SANTA 240 ML BOTTLE MM SCH ×4 (00:30→17:21)
[2021-01-03] MEDS ORDERED: LEVOTHYROXINE NA 150 MCG TABLET ONE (05:57)
[2021-01-03] MEDS ORDERED: LEVOTHYROXINE NA 125 MCG TABLET (FP) ONE (05:57)
[2021-01-03] MEDS: LEVOTHYROXINE PO SCH (06:01)
[2021-01-03] MEDS: FAMOTIDINE 20 MG TABLET PO SCH ×2 (11:29→21:22)
[2021-01-03] MEDS: ASPIRIN COATED 81 MG TABLET.EC PO SCH (11:29)
[2021-01-03] MEDS: DOCUSATE SODIUM 100 MG CAPSULE (FP) PO SCH (11:29)
[2021-01-03] MEDS: DESMOPRESSIN ACETATE 0.1 MG TABLET PO SCH (11:29)
[2021-01-03] MEDS: ENOXAPARIN NA (PORCINE) 40 MG/0.4 ML DISP.SYRIN SQ SCH (11:29)
[2021-01-03] MEDS: GABAPENTIN 100 MG CAPSULE PO SCH ×2 (11:29→21:22)
[2021-01-03] MEDS: MAG HYDROX/AL HYDROX/SIMETH 30 ML UNIT-DOSE CUP PO SCH (11:29)
[2021-01-03] MEDS: AMINO ACIDS/PROTEIN HYDROLYS 30 ML LIQUID.PKT PO SCH ×3 (11:30→17:23)
[2021-01-03] MEDS: POLYETHYLENE GLYCOL (HEALTHYLAX) 3350 17 GM PACKET PO SCH (11:30)
[2021-01-03] MEDS: SILVER SULFADIAZINE 1% TOP CREAM 50 GM JAR TP SCH ×2 (11:30→21:23)
[2021-01-03] MEDS: HYDROCORTISONE 20 MG TABLET PO SCH ×2 (11:30→21:23)
[2021-01-03] MEDS: HYDROCORTISONE 1% TOPICAL CREAM 30 GM TUBE TP SCH ×2 (11:30→21:23)
[2021-01-03] MEDS: MINERAL OIL/PETROLAT/WATER TOPICAL CREAM 113 GM JAR TP SCH (11:30)
[2021-01-03] MEDS: TOLNAFTATE 1% POWDER 45 GM POW TP SCH ×2 (11:31→21:23)
[2021-01-03] MEDS: DAPTOMYCIN 1,000 MG in SODIUM CHLORIDE 100 ML IVPB SCH (14:43)
[2021-01-03] MEDS ORDERED: PT OWN MED DRAWER 7, Y5N ONE ×2 (17:15→21:20)
[2021-01-03 17:59] LABS: BASO % 0.5 % (0-2.0); EOS % 4.9 % (0-4.5); HEMATOCRIT 25.6 % (35.4-49); HEMOGLOBIN 9.4 GM/dL (11.7-16.9); LYMPH % 13.4 % (8-40); MCH 30.7 pg (25.7-33.7); MCHC 36.6 g/dl (32.0-35.9); MEAN CELL VOLUME 83.9 fl (80-96); MEAN PLT VOLUME 7.8 fl (7.5-11.1); MONO % 10.8 % (3.8-10.2); NEUT % 70.4 % (42.8-82.8); PLATELET COUNT 248 10^3/uL (134-434); RBC 3.05 M/mm3 (4.00-5.60); WHITE BLOOD COUNT 7.2 K/mm3 (4.0-10.0)
[2021-01-03 18:18] LABS: CALCIUM 7.8 mg/dL (8.5-10.1)
[2021-01-03 18:22] LABS: CREATININE 0.6 mg/dL (0.55-1.3); PHOSPHOROUS 3.1 mg/dL (2.5-4.9)
[2021-01-03] MEDS: MELATONIN 5 MG TABLETS PO SCH (21:22)
[2021-01-03] MEDS: SENNOSIDES 8.6MG TABLET (FP) PO SCH (21:22)
[2021-01-04] MEDS: LYTES/YERBA SANTA 240 ML BOTTLE MM SCH ×4 (03:36→17:40)
[2021-01-04] MEDS ORDERED: LEVOTHYROXINE NA 125 MCG TABLET (FP) ONE (05:49)
[2021-01-04] MEDS ORDERED: LEVOTHYROXINE NA 150 MCG TABLET ONE (05:49)
[2021-01-04] MEDS: LEVOTHYROXINE PO SCH (06:00)
[2021-01-04] MEDS: AMINO ACIDS/PROTEIN HYDROLYS 30 ML LIQUID.PKT PO SCH ×2 (08:32→17:29)
[2021-01-04] MEDS: ENOXAPARIN NA (PORCINE) 40 MG/0.4 ML DISP.SYRIN SQ SCH (09:31)
[2021-01-04] MEDS: DOCUSATE SODIUM 100 MG CAPSULE (FP) PO SCH (09:31)
[2021-01-04] MEDS: HYDROCORTISONE 20 MG TABLET PO SCH ×2 (09:32→21:21)
[2021-01-04] MEDS: DESMOPRESSIN ACETATE 0.1 MG TABLET PO SCH (09:32)
[2021-01-04] MEDS: FAMOTIDINE 20 MG TABLET PO SCH ×2 (09:32→21:21)
[2021-01-04] MEDS: GABAPENTIN 100 MG CAPSULE PO SCH ×2 (09:32→21:21)
[2021-01-04] MEDS: MULTIVITAMINS (DAILY MVI) TABLET (FP) PO SCH (09:32)
[2021-01-04] MEDS: ASPIRIN COATED 81 MG TABLET.EC PO SCH (09:32)
[2021-01-04] MEDS: HYDROCORTISONE 1% TOPICAL CREAM 30 GM TUBE TP SCH ×2 (09:32→21:21)
[2021-01-04] MEDS: MINERAL OIL/PETROLAT/WATER TOPICAL CREAM 113 GM JAR TP SCH (09:33)
[2021-01-04] MEDS: TOLNAFTATE 1% POWDER 45 GM POW TP SCH ×2 (09:33→21:22)
[2021-01-04] MEDS: SILVER SULFADIAZINE 1% TOP CREAM 50 GM JAR TP SCH ×2 (09:33→21:22)
[2021-01-04] MEDS: MAG HYDROX/AL HYDROX/SIMETH 30 ML UNIT-DOSE CUP PO SCH (09:39)
[2021-01-04] MEDS: POLYETHYLENE GLYCOL (HEALTHYLAX) 3350 17 GM PACKET PO SCH (10:53)
[2021-01-04] MEDS: DAPTOMYCIN 1,000 MG in SODIUM CHLORIDE 100 ML IVPB SCH ×2 (12:31→16:02)
[2021-01-04] MEDS ORDERED: PT OWN MED DRAWER 7, Y5N ONE (21:16)
[2021-01-04] MEDS: MELATONIN 5 MG TABLETS PO SCH (21:21)
[2021-01-04] MEDS: SENNOSIDES 8.6MG TABLET (FP) PO SCH (21:21)
[2021-01-05] MEDS: LYTES/YERBA SANTA 240 ML BOTTLE MM SCH ×4 (00:34→17:27)
[2021-01-05] MEDS ORDERED: LEVOTHYROXINE NA 150 MCG TABLET ONE (06:00)
[2021-01-05] MEDS ORDERED: LEVOTHYROXINE NA 125 MCG TABLET (FP) ONE (06:01)
[2021-01-05] MEDS: LEVOTHYROXINE PO SCH (06:02)
[2021-01-05] MEDS: AMINO ACIDS/PROTEIN HYDROLYS 30 ML LIQUID.PKT PO SCH ×2 (08:35→17:27)
[2021-01-05] MEDS ORDERED: PT OWN MED DRAWER 7, Y5N ONE ×2 (10:21→12:21)
[2021-01-05] MEDS: GABAPENTIN 100 MG CAPSULE PO SCH (10:22)
[2021-01-05] MEDS: ASPIRIN COATED 81 MG TABLET.EC PO SCH (10:22)
[2021-01-05] MEDS: POLYETHYLENE GLYCOL (HEALTHYLAX) 3350 17 GM PACKET PO SCH (10:22)
[2021-01-05] MEDS: DESMOPRESSIN ACETATE 0.1 MG TABLET PO SCH (10:22)
[2021-01-05] MEDS: FAMOTIDINE 20 MG TABLET PO SCH (10:22)
[2021-01-05] MEDS: MINERAL OIL/PETROLAT/WATER TOPICAL CREAM 113 GM JAR TP SCH (10:22)
[2021-01-05] MEDS: DOCUSATE SODIUM 100 MG CAPSULE (FP) PO SCH (10:22)
[2021-01-05] MEDS: HYDROCORTISONE 1% TOPICAL CREAM 30 GM TUBE TP SCH (10:22)
[2021-01-05] MEDS: MULTIVITAMINS (DAILY MVI) TABLET (FP) PO SCH (10:22)
[2021-01-05] MEDS: HYDROCORTISONE 20 MG TABLET PO SCH (10:22)
[2021-01-05] MEDS: SILVER SULFADIAZINE 1% TOP CREAM 50 GM JAR TP SCH (10:23)
[2021-01-05] MEDS: MAG HYDROX/AL HYDROX/SIMETH 30 ML UNIT-DOSE CUP PO SCH (10:23)
[2021-01-05] MEDS: TOLNAFTATE 1% POWDER 45 GM POW TP SCH (10:23)
[2021-01-05 10:59] LABS: BASO % 0.5 % (0-2.0); EOS % 4.9 % (0-4.5); HEMATOCRIT 30.7 % (35.4-49); HEMOGLOBIN 10.7 GM/dL (11.7-16.9); LYMPH % 26.2 % (8-40); MCH 29.9 pg (25.7-33.7); MCHC 34.8 g/dl (32.0-35.9); MEAN PLT VOLUME 7.4 fl (7.5-11.1); MONO % 14.7 % (3.8-10.2); NEUT % 53.7 % (42.8-82.8); PLATELET COUNT 318 10^3/uL (134-434); RBC 3.57 M/mm3 (4.00-5.60); RDW 16.8 % (11.9-15.9); WHITE BLOOD COUNT 8.3 K/mm3 (4.0-10.0)
[2021-01-05 11:29] LABS: CALCIUM 8.7 mg/dL (8.5-10.1)
[2021-01-05 11:30] LABS: ALBUMIN 2.8 g/dl (3.4-5.0); MAGNESIUM 2.3 mg/dL (1.8-2.4)
[2021-01-05 11:33] LABS: CREATININE 0.6 mg/dL (0.55-1.3); PHOSPHOROUS 3.8 mg/dL (2.5-4.9)
[2021-01-05 11:34] LABS: TOT PROT 6.3 g/dl (6.4-8.2)
[2021-01-05] MEDS: DAPTOMYCIN 1,000 MG in SODIUM CHLORIDE 100 ML IVPB SCH (14:06)
[2021-01-05] MEDS ORDERED: DESMOPRESSIN ACETATE 0.1 MG TABLET PO ONE (15:00)
[2021-01-05 17:26] VITALS: BP 136/78; PULSE 86; TEMP 98.2
== END 2021-01-05 19:11 | DRG 917 ==
LOC: JER 14:50 → JERBED 21:06 → J6S 12-29 14:50
PROVIDERS: ADMIT Internal Medicine; ATTEND Internal Medicine
PROC: 05HF33Z Insertion of Infusion Device into Left Cephalic Vein, Percutaneous Approach (ICD-10-PCS; principal; 2021-01-04)
DX: T38.891A Poisoning by other hormones and synthetic substitutes, accidental (unintentional), initial encounter (principal); A41.9 Sepsis, unspecified organism; E23.0 Hypopituitarism; E87.1 Hypo-osmolality and hyponatremia; I69.354 Hemiplegia and hemiparesis following cerebral infarction affecting left non-dominant side; E27.40 Unspecified adrenocortical insufficiency; E23.2 Diabetes insipidus; L89.152 Pressure ulcer of sacral region, stage 2; D50.9 Iron deficiency anemia, unspecified; E66.01 Morbid (severe) obesity due to excess calories; Z68.36 Body mass index [BMI] 36.0-36.9, adult; Y92.89 Other specified places as the place of occurrence of the external cause
CPT/HCPCS: 36415; 70450-TC; 71045-TC-FY; 73523-TC-FY; 73552-TC-LT-FY; 73701-TC-RT; 74177-TC; 80048; 80053; 80061; 81003; 83540; 83550; 83735; 83930; 83935; 84100; 84300; 84439; 84443; 84479; 84480; 84481; 85025; 85027; 85045; 85610; 86850; 86900; 86901; 87040; 87086; 87186; 93005; 93010; 93306-TC; 99285-25; C9803; J0131; J0878; Q9967; U0003; U0005

== ENCOUNTER 2021-05-04 12:25 | Inpatient (IN) | payer OTHER ==
[2021-05-04] MEDS ORDERED: SODIUM CHLORIDE 3,729 ML IV ONE (12:49)
[2021-05-04] MEDS ORDERED: ACETAMINOPHEN 1000 MG/100 ML BAG IVPB ONE ×2 (13:10→18:56)
[2021-05-04] MEDS ORDERED: PIPERACILLIN/TAZOB 3.375 GM 3.375 GM in DEXTROSE 5%-WATER - 50 ML IVPB ONE (13:56)
[2021-05-04 14:01] LABS: VENOUS BASE EXCESS -4.4 mmol/L (-2-2); VENOUS O2 SATURATION 56.1 % (70-80); VENOUS PCO2 46.1 mmHg (38-52); VENOUS PH 7.301 (7.310-7.410)
[2021-05-04] MEDS ORDERED: HYDROCORTISONE SOD SUCCINATE 100 MG/2 ML VIAL IVPUSH ONE (14:09)
[2021-05-04 14:16] LABS: CHLORIDE 100 mmol/L (98-107); SODIUM 139 mmol/L (136-145)
[2021-05-04 14:19] LABS: BASO % 0.3 % (0-2.0); EOS % 0.2 % (0-4.5); HEMATOCRIT 50.6 % (35.4-49); HEMOGLOBIN 16.9 GM/dL (11.7-16.9); MCH 27.7 pg (25.7-33.7); MCHC 33.3 g/dl (32.0-35.9); MEAN CELL VOLUME 83.1 fl (80-96); MONO % 9.2 % (3.8-10.2); NEUT % 71.3 % (42.8-82.8); PLATELET COUNT 262 10^3/uL (134-434); RBC 6.09 M/mm3 (4.00-5.60); RDW 14.3 % (11.9-15.9); WHITE BLOOD COUNT 13.2 K/mm3 (4.0-10.0)
[2021-05-04 14:23] LABS: CALCIUM 10.1 mg/dL (8.5-10.1)
[2021-05-04 14:24] LABS: ALBUMIN 3.8 g/dl (3.4-5.0); ANION GAP 14 MMOL/L (8-16); BLOOD UREA NITROGEN 15.3 mg/dL (7-18); CO2 24 mmol/L (21-32); GLUCOSE,RANDOM 70 mg/dL (74-106)
[2021-05-04 14:26] LABS: CREATININE 1.3 mg/dL (0.55-1.3); SGOT/AST 32 U/L (15-37); SGPT/ALT 42 U/L (13-61)
[2021-05-04 14:28] LABS: BILIRUBIN,TOTAL 0.9 mg/dL (0.2-1); TOT PROT 7.9 g/dl (6.4-8.2)
[2021-05-04 14:30] LABS: ALK PHOS 113 U/L (45-117)
[2021-05-04] MEDS ORDERED: DEXTROSE 5%-NORMAL SALINE 1,000 ML IV ONE (14:35)
[2021-05-04 14:37] LABS: INR 1.27 (0.83-1.09); PROTHROMBIN TIME (PATIENT) 14.6 SEC (9.7-13.0)
[2021-05-04 14:39] LABS: ACTIVATED PTT 39.2 SECONDS (25.2-36.5)
[2021-05-04 14:48] LABS: LACTIC ACID 3.5 mmol/L (0.4-2.0)
[2021-05-04] MEDS ORDERED: LINEZOLID 600 MG PREMIX BAG 600 MG in PREMIX 300 IVPB ONE (15:36)
[2021-05-04] MEDS ORDERED: SOTROVIMAB 500 MG in SODIUM CHLORIDE 100 ML IVPB ONE (16:00)
[2021-05-04] MEDS ORDERED: REMDESIVIR 200 MG in SODIUM CHLORIDE 250 ML IVPB ONE (16:00)
[2021-05-04] MEDS ORDERED: ACETAMINOPHEN 325 MG TABLET (FP) PO PRN (16:25)
[2021-05-04] MEDS ORDERED: ALBUTEROL SO4 HFA INHALER IH PRN (17:26)
[2021-05-04] MEDS: SODIUM CHLORIDE 1,000 ML IV SCH (18:04)
[2021-05-04 19:28] LABS: URINE APPEARANCE CLEAR; URINE BILIRUBIN NEGATIVE (NEGATIVE); URINE COLOR YELLOW; URINE GLUCOSE (UA) NEGATIVE (NEGATIVE); URINE KETONE NEGATIVE (NEGATIVE); URINE LEUK ESTERASE NEGATIVE (NEGATIVE); URINE NITRITE NEGATIVE (NEGATIVE); URINE PROTEIN NEGATIVE (NEGATIVE); URINE UROBILINOGEN 0.2 mg/dL (0.2-1.0)
[2021-05-05] MEDS: ATORVASTATIN CA 40 MG TABLET (FP) PO SCH ×2 (00:05→22:18)
[2021-05-05] MEDS: GABAPENTIN 100 MG CAPSULE PO SCH ×3 (00:05→22:18)
[2021-05-05] MEDS: HEPARIN NA (PORCINE) 5,000 UNITS/ML 1ML VIAL SQ SCH ×4 (00:06→22:18)
[2021-05-05] MEDS ORDERED: LEVOTHYROXINE NA 75 MCG TABLET (FP) ONE (05:45)
[2021-05-05] MEDS ORDERED: LEVOTHYROXINE NA 200 MCG TABLET ONE (05:45)
[2021-05-05] MEDS: LEVOTHYROXINE PO SCH (06:17)
[2021-05-05] MEDS ORDERED: LEVOTHYROXINE NA 125 MCG TABLET (FP) PO SCH (07:00)
[2021-05-05 07:40] VITALS: BMI 32.0
[2021-05-05] MEDS: ASPIRIN 81 MG CHEWABLE TABLETS PO SCH (11:00)
[2021-05-05] MEDS: DOCUSATE SODIUM 100 MG CAPSULE (FP) PO SCH (11:01)
[2021-05-05] MEDS: HYDROCORTISONE 20 MG TABLET PO SCH ×2 (11:01→22:17)
[2021-05-05] MEDS: DESMOPRESSIN ACETATE 0.1 MG TABLET PO SCH (12:24)
[2021-05-05] MEDS: SODIUM CHLORIDE 1,000 ML IV SCH ×2 (16:01→23:15)
[2021-05-05] MEDS ORDERED: NITROGLYCERIN SUBLINGUAL 1/150 0.4 MG TAB SL PRN (17:11)
[2021-05-05 19:07] LABS: BASO % 0.1 % (0-2.0); EOS % 0.9 % (0-4.5); HEMATOCRIT 34.2 % (35.4-49); HEMOGLOBIN 11.5 GM/dL (11.7-16.9); LYMPH % 16.4 % (8-40); MCH 27.9 pg (25.7-33.7); MCHC 33.7 g/dl (32.0-35.9); MEAN CELL VOLUME 82.8 fl (80-96); MEAN PLT VOLUME 8.7 fl (7.5-11.1); NEUT % 72.6 % (42.8-82.8); PLATELET COUNT 162 10^3/uL (134-434); RBC 4.13 M/mm3 (4.00-5.60); RDW 14.4 % (11.9-15.9); WHITE BLOOD COUNT 8.1 K/mm3 (4.0-10.0)
[2021-05-05 19:15] LABS: INR 1.55 (0.83-1.09); PROTHROMBIN TIME (PATIENT) 17.9 SEC (9.7-13.0)
[2021-05-05 19:31] LABS: PHOSPHOROUS 3.1 mg/dL (2.5-4.9)
[2021-05-05 19:33] LABS: BILIRUBIN,TOTAL 0.5 mg/dL (0.2-1); CREATININE 0.8 mg/dL (0.55-1.3)
[2021-05-05 19:37] LABS: ALBUMIN 2.4 g/dl (3.4-5.0); CALCIUM 7.9 mg/dL (8.5-10.1); TOT PROT 5.2 g/dl (6.4-8.2)
[2021-05-05] MEDS ORDERED: REMDESIVIR 100 MG in SODIUM CHLORIDE 270 ML IVPB ONE (21:21)
[2021-05-05] MEDS: FAMOTIDINE 20 MG TABLET PO SCH (22:18)
[2021-05-05] MEDS: SENNOSIDES 8.6MG TABLET (FP) PO SCH (22:42)
[2021-05-05] MEDS ORDERED: HYDROCORTISONE 0.5% TOPICAL CREAM 30 GM TUBE TP ONE (23:39)
[2021-05-06] MEDS ORDERED: LEVOTHYROXINE NA 200 MCG TABLET ONE (05:22)
[2021-05-06] MEDS ORDERED: LEVOTHYROXINE NA 75 MCG TABLET (FP) ONE (05:22)
[2021-05-06] MEDS: LEVOTHYROXINE PO SCH (06:15)
[2021-05-06] MEDS: HEPARIN NA (PORCINE) 5,000 UNITS/ML 1ML VIAL SQ SCH ×3 (06:15→22:18)
[2021-05-06] MEDS: DOCUSATE SODIUM 100 MG CAPSULE (FP) PO SCH (10:06)
[2021-05-06] MEDS: DESMOPRESSIN ACETATE 0.1 MG TABLET PO SCH (10:06)
[2021-05-06] MEDS: GABAPENTIN 100 MG CAPSULE PO SCH ×2 (10:06→22:17)
[2021-05-06] MEDS: ASPIRIN 81 MG CHEWABLE TABLETS PO SCH (10:06)
[2021-05-06] MEDS: FAMOTIDINE 20 MG TABLET PO SCH ×2 (10:06→22:17)
[2021-05-06] MEDS: HYDROCORTISONE 20 MG TABLET PO SCH (10:07)
[2021-05-06] MEDS: POLYETHYLENE GLYCOL (HEALTHYLAX) 3350 17 GM PACKET PO SCH (10:14)
[2021-05-06 11:03] LABS: BASO % 0.3 % (0-2.0); EOS % 3.8 % (0-4.5); HEMATOCRIT 34.7 % (35.4-49); HEMOGLOBIN 11.3 GM/dL (11.7-16.9); LYMPH % 34.6 % (8-40); MCH 27.5 pg (25.7-33.7); MCHC 32.5 g/dl (32.0-35.9); MEAN CELL VOLUME 84.6 fl (80-96); MEAN PLT VOLUME 8.6 fl (7.5-11.1); MONO % 8.4 % (3.8-10.2); NEUT % 52.9 % (42.8-82.8); PLATELET COUNT 155 10^3/uL (134-434); RBC 4.11 M/mm3 (4.00-5.60); RDW 14.6 % (11.9-15.9); WHITE BLOOD COUNT 6.1 K/mm3 (4.0-10.0)
[2021-05-06 12:15] LABS: ALBUMIN 2.3 g/dl (3.4-5.0); BILIRUBIN,TOTAL 0.4 mg/dL (0.2-1); CALCIUM 8.2 mg/dL (8.5-10.1); CREATININE 0.6 mg/dL (0.55-1.3); PHOSPHOROUS 3.2 mg/dL (2.5-4.9); TOT PROT 5.1 g/dl (6.4-8.2)
[2021-05-06] MEDS ORDERED: HYDROCORTISONE 5 MG TABLET PO SCH (14:00)
[2021-05-06] MEDS ORDERED: REMDESIVIR 100 MG in SODIUM CHLORIDE 270 ML IVPB ONE (14:00)
[2021-05-06] MEDS: guaiFENesin 200 MG/10 ML 10 ML UNIT-DOSE CUPS PO PRN (15:01)
[2021-05-06] MEDS: [UNRECOGNIZED DRUG - REMARK] TP SCH ×2 (16:09→16:10)
[2021-05-06] MEDS ORDERED: REMDESIVIR 100 MG in SODIUM CHLORIDE 250 ML IVPB SCH (18:00)
[2021-05-06] MEDS: HYDROCORTISONE 5 MG TABLET PO SCH (22:16)
[2021-05-06] MEDS: ATORVASTATIN CA 40 MG TABLET (FP) PO SCH (22:17)
[2021-05-06] MEDS: SENNOSIDES 8.6MG TABLET (FP) PO SCH (22:18)
[2021-05-07] MEDS ORDERED: LEVOTHYROXINE NA 200 MCG TABLET ONE (05:02)
[2021-05-07] MEDS ORDERED: LEVOTHYROXINE NA 75 MCG TABLET (FP) ONE (05:03)
[2021-05-07] MEDS: HEPARIN NA (PORCINE) 5,000 UNITS/ML 1ML VIAL SQ SCH ×3 (06:26→21:41)
[2021-05-07] MEDS: LEVOTHYROXINE PO SCH (06:26)
[2021-05-07 09:45] LABS: HEMATOCRIT 32.5 % (35.4-49); HEMOGLOBIN 10.9 GM/dL (11.7-16.9); MCH 27.6 pg (25.7-33.7); MCHC 33.6 g/dl (32.0-35.9); MEAN CELL VOLUME 82.2 fl (80-96); PLATELET COUNT 140 10^3/uL (134-434); RBC 3.96 M/mm3 (4.00-5.60); RDW 14.1 % (11.9-15.9); WHITE BLOOD COUNT 4.9 K/mm3 (4.0-10.0)
[2021-05-07] MEDS: FAMOTIDINE 20 MG TABLET PO SCH ×2 (10:09→21:40)
[2021-05-07] MEDS: POLYETHYLENE GLYCOL (HEALTHYLAX) 3350 17 GM PACKET PO SCH ×2 (10:09→11:20)
[2021-05-07] MEDS: DESMOPRESSIN ACETATE 0.1 MG TABLET PO SCH (10:09)
[2021-05-07] MEDS: DOCUSATE SODIUM 100 MG CAPSULE (FP) PO SCH (10:09)
[2021-05-07] MEDS: GABAPENTIN 100 MG CAPSULE PO SCH ×2 (10:09→21:41)
[2021-05-07] MEDS: ASPIRIN 81 MG CHEWABLE TABLETS PO SCH (10:09)
[2021-05-07] MEDS: HYDROCORTISONE 5 MG TABLET PO SCH ×2 (10:09→21:43)
[2021-05-07 10:12] LABS: CALCIUM 8.2 mg/dL (8.5-10.1)
[2021-05-07 10:13] LABS: ALBUMIN 2.4 g/dl (3.4-5.0); BLOOD UREA NITROGEN 11.4 mg/dL (7-18); MAGNESIUM 1.9 mg/dL (1.8-2.4)
[2021-05-07 10:15] LABS: PHOSPHOROUS 3.5 mg/dL (2.5-4.9)
[2021-05-07 10:16] LABS: CREATININE 0.6 mg/dL (0.55-1.3)
[2021-05-07 10:17] LABS: BILIRUBIN,TOTAL 0.6 mg/dL (0.2-1); TOT PROT 5.2 g/dl (6.4-8.2)
[2021-05-07] MEDS: ATORVASTATIN CA 40 MG TABLET (FP) PO SCH (21:40)
[2021-05-07] MEDS: SENNOSIDES 8.6MG TABLET (FP) PO SCH (21:40)
[2021-05-07] MEDS: guaiFENesin 200 MG/10 ML 10 ML UNIT-DOSE CUPS PO PRN (21:44)
[2021-05-08] MEDS ORDERED: diphenhydrAMINE HCL 25 MG CAPSULE (FP) PO ONE (05:09)
[2021-05-08] MEDS ORDERED: LEVOTHYROXINE NA 200 MCG TABLET ONE (05:12)
[2021-05-08] MEDS ORDERED: LEVOTHYROXINE NA 75 MCG TABLET (FP) ONE (05:12)
[2021-05-08] MEDS: HEPARIN NA (PORCINE) 5,000 UNITS/ML 1ML VIAL SQ SCH ×3 (05:32→22:19)
[2021-05-08] MEDS: LEVOTHYROXINE PO SCH (06:07)
[2021-05-08] MEDS: GABAPENTIN 100 MG CAPSULE PO SCH ×2 (10:22→22:19)
[2021-05-08] MEDS: FAMOTIDINE 20 MG TABLET PO SCH ×2 (10:22→22:19)
[2021-05-08] MEDS: POLYETHYLENE GLYCOL (HEALTHYLAX) 3350 17 GM PACKET PO SCH (10:22)
[2021-05-08] MEDS: ASPIRIN 81 MG CHEWABLE TABLETS PO SCH (10:22)
[2021-05-08] MEDS: HYDROCORTISONE 5 MG TABLET PO SCH ×2 (10:23→22:19)
[2021-05-08] MEDS: DESMOPRESSIN ACETATE 0.1 MG TABLET PO SCH (10:23)
[2021-05-08] MEDS: DOCUSATE SODIUM 100 MG CAPSULE (FP) PO SCH (10:24)
[2021-05-08] MEDS: ATORVASTATIN CA 40 MG TABLET (FP) PO SCH (22:19)
[2021-05-08] MEDS: SENNOSIDES 8.6MG TABLET (FP) PO SCH (22:19)
[2021-05-09] MEDS ORDERED: LEVOTHYROXINE NA 75 MCG TABLET (FP) ONE (05:33)
[2021-05-09] MEDS ORDERED: LEVOTHYROXINE NA 200 MCG TABLET ONE (05:33)
[2021-05-09] MEDS: LEVOTHYROXINE PO SCH (06:08)
[2021-05-09] MEDS: HEPARIN NA (PORCINE) 5,000 UNITS/ML 1ML VIAL SQ SCH ×3 (06:08→21:44)
[2021-05-09] MEDS ORDERED: HYDROCORTISONE 5 MG TABLET PO SCH (07:29)
[2021-05-09] MEDS: ASPIRIN 81 MG CHEWABLE TABLETS PO SCH (10:35)
[2021-05-09] MEDS: POLYETHYLENE GLYCOL (HEALTHYLAX) 3350 17 GM PACKET PO SCH (10:35)
[2021-05-09] MEDS: FAMOTIDINE 20 MG TABLET PO SCH ×2 (10:35→21:45)
[2021-05-09] MEDS: DOCUSATE SODIUM 100 MG CAPSULE (FP) PO SCH (10:35)
[2021-05-09] MEDS: GABAPENTIN 100 MG CAPSULE PO SCH ×2 (10:35→21:45)
[2021-05-09] MEDS: HYDROCORTISONE 10 MG TABLET PO SCH ×2 (10:36→21:47)
[2021-05-09] MEDS: DESMOPRESSIN ACETATE 0.1 MG TABLET PO SCH (10:38)
[2021-05-09] MEDS: ATORVASTATIN CA 40 MG TABLET (FP) PO SCH (21:45)
[2021-05-09] MEDS: SENNOSIDES 8.6MG TABLET (FP) PO SCH (21:45)
[2021-05-10] MEDS ORDERED: LEVOTHYROXINE NA 200 MCG TABLET ONE (04:59)
[2021-05-10] MEDS ORDERED: LEVOTHYROXINE NA 75 MCG TABLET (FP) ONE (04:59)
[2021-05-10] MEDS: HEPARIN NA (PORCINE) 5,000 UNITS/ML 1ML VIAL SQ SCH ×3 (06:05→21:40)
[2021-05-10] MEDS: LEVOTHYROXINE PO SCH (06:06)
[2021-05-10] MEDS: ASPIRIN 81 MG CHEWABLE TABLETS PO SCH (11:00)
[2021-05-10] MEDS: GABAPENTIN 100 MG CAPSULE PO SCH ×2 (11:01→21:40)
[2021-05-10] MEDS: FAMOTIDINE 20 MG TABLET PO SCH ×2 (11:01→21:40)
[2021-05-10] MEDS: DESMOPRESSIN ACETATE 0.1 MG TABLET PO SCH (11:01)
[2021-05-10] MEDS: DOCUSATE SODIUM 100 MG CAPSULE (FP) PO SCH (11:03)
[2021-05-10] MEDS: HYDROCORTISONE 10 MG TABLET PO SCH ×2 (11:04→21:41)
[2021-05-10] MEDS: POLYETHYLENE GLYCOL (HEALTHYLAX) 3350 17 GM PACKET PO SCH (11:06)
[2021-05-10] MEDS: ATORVASTATIN CA 40 MG TABLET (FP) PO SCH (21:40)
[2021-05-10] MEDS: SENNOSIDES 8.6MG TABLET (FP) PO SCH (21:40)
[2021-05-11] MEDS ORDERED: LEVOTHYROXINE NA 200 MCG TABLET ONE (05:13)
[2021-05-11] MEDS ORDERED: LEVOTHYROXINE NA 75 MCG TABLET (FP) ONE (05:13)
[2021-05-11] MEDS: LEVOTHYROXINE PO SCH (06:01)
[2021-05-11] MEDS: HEPARIN NA (PORCINE) 5,000 UNITS/ML 1ML VIAL SQ SCH ×2 (06:01→15:12)
[2021-05-11] MEDS: DOCUSATE SODIUM 100 MG CAPSULE (FP) PO SCH (10:36)
[2021-05-11] MEDS: GABAPENTIN 100 MG CAPSULE PO SCH ×2 (10:36→21:36)
[2021-05-11] MEDS: FAMOTIDINE 20 MG TABLET PO SCH ×2 (10:36→21:36)
[2021-05-11] MEDS: POLYETHYLENE GLYCOL (HEALTHYLAX) 3350 17 GM PACKET PO SCH (10:36)
[2021-05-11] MEDS: DESMOPRESSIN ACETATE 0.1 MG TABLET PO SCH (10:37)
[2021-05-11] MEDS: HYDROCORTISONE 5 MG TABLET PO SCH ×2 (10:38→21:38)
[2021-05-11] MEDS: ASPIRIN 81 MG CHEWABLE TABLETS PO SCH (10:39)
[2021-05-11] MEDS: ATORVASTATIN CA 40 MG TABLET (FP) PO SCH (21:36)
[2021-05-11] MEDS: SENNOSIDES 8.6MG TABLET (FP) PO SCH (21:43)
[2021-05-12] MEDS ORDERED: LEVOTHYROXINE NA 200 MCG TABLET ONE (05:57)
[2021-05-12] MEDS ORDERED: LEVOTHYROXINE NA 75 MCG TABLET (FP) ONE (05:57)
[2021-05-12] MEDS: LEVOTHYROXINE PO SCH (06:15)
[2021-05-12] MEDS: GABAPENTIN 100 MG CAPSULE PO SCH ×2 (10:27→21:29)
[2021-05-12] MEDS: DOCUSATE SODIUM 100 MG CAPSULE (FP) PO SCH (10:27)
[2021-05-12] MEDS: POLYETHYLENE GLYCOL (HEALTHYLAX) 3350 17 GM PACKET PO SCH (10:27)
[2021-05-12] MEDS: FAMOTIDINE 20 MG TABLET PO SCH ×2 (10:27→21:29)
[2021-05-12] MEDS: ASPIRIN 81 MG CHEWABLE TABLETS PO SCH (10:27)
[2021-05-12] MEDS: HYDROCORTISONE 5 MG TABLET PO SCH ×2 (10:28→21:30)
[2021-05-12] MEDS: DESMOPRESSIN ACETATE 0.1 MG TABLET PO SCH (10:28)
[2021-05-12] MEDS: ATORVASTATIN CA 40 MG TABLET (FP) PO SCH (21:29)
[2021-05-12] MEDS: SENNOSIDES 8.6MG TABLET (FP) PO SCH (21:34)
[2021-05-13] MEDS ORDERED: LEVOTHYROXINE NA 75 MCG TABLET (FP) ONE (05:36)
[2021-05-13] MEDS ORDERED: LEVOTHYROXINE NA 200 MCG TABLET ONE (05:36)
[2021-05-13] MEDS: LEVOTHYROXINE PO SCH (06:30)
[2021-05-13] MEDS: POLYETHYLENE GLYCOL (HEALTHYLAX) 3350 17 GM PACKET PO SCH (11:02)
[2021-05-13] MEDS: ASPIRIN 81 MG CHEWABLE TABLETS PO SCH (11:03)
[2021-05-13] MEDS: FAMOTIDINE 20 MG TABLET PO SCH ×2 (11:03→22:00)
[2021-05-13] MEDS: DOCUSATE SODIUM 100 MG CAPSULE (FP) PO SCH (11:03)
[2021-05-13] MEDS: GABAPENTIN 100 MG CAPSULE PO SCH ×2 (11:03→22:00)
[2021-05-13] MEDS: DESMOPRESSIN ACETATE 0.1 MG TABLET PO SCH (11:03)
[2021-05-13] MEDS: HYDROCORTISONE 5 MG TABLET PO SCH ×2 (11:04→22:01)
[2021-05-13] MEDS: ATORVASTATIN CA 40 MG TABLET (FP) PO SCH (22:00)
[2021-05-13] MEDS: SENNOSIDES 8.6MG TABLET (FP) PO SCH (22:00)
[2021-05-14] MEDS ORDERED: LEVOTHYROXINE NA 200 MCG TABLET ONE (05:37)
[2021-05-14] MEDS ORDERED: LEVOTHYROXINE NA 75 MCG TABLET (FP) ONE (05:37)
[2021-05-14] MEDS: LEVOTHYROXINE PO SCH (06:02)
[2021-05-14] MEDS: HYDROCORTISONE 5 MG TABLET PO SCH (10:43)
[2021-05-14] MEDS: GABAPENTIN 100 MG CAPSULE PO SCH (10:43)
[2021-05-14] MEDS: DOCUSATE SODIUM 100 MG CAPSULE (FP) PO SCH (10:43)
[2021-05-14] MEDS: FAMOTIDINE 20 MG TABLET PO SCH (10:43)
[2021-05-14] MEDS: ASPIRIN 81 MG CHEWABLE TABLETS PO SCH (10:43)
[2021-05-14] MEDS: DESMOPRESSIN ACETATE 0.1 MG TABLET PO SCH (10:43)
[2021-05-14] MEDS: POLYETHYLENE GLYCOL (HEALTHYLAX) 3350 17 GM PACKET PO SCH (10:44)
[2021-05-14 16:22] VITALS: BP 97/61; PULSE 90; TEMP 98
== END 2021-05-14 17:46 | DRG 871 ==
LOC: JER 12:25 → UNDOADMOB 16:07 → JERBED 16:07 → INTOOBSV 16:07 → JERBED 16:25 → J8W 22:41 → OBSVTOIN 05-05 10:09
PROVIDERS: ADMIT Internal Medicine; ATTEND Internal Medicine
PROC: XW033H6 Introduction of Other New Technology Monoclonal Antibody into Peripheral Vein, Percutaneous Approach, New Technology Group 6 (ICD-10-PCS; principal; 2021-05-04)
PROC: XW033E5 Introduction of Remdesivir Anti-infective into Peripheral Vein, Percutaneous Approach, New Technology Group 5 (ICD-10-PCS; 2021-05-04)
DX: A41.89 Other specified sepsis (principal); U07.1 COVID-19; I69.354 Hemiplegia and hemiparesis following cerebral infarction affecting left non-dominant side; E23.2 Diabetes insipidus; E27.40 Unspecified adrenocortical insufficiency; E23.0 Hypopituitarism; E87.2 Acidosis; R65.20 Severe sepsis without septic shock; E03.9 Hypothyroidism, unspecified; Z96.642 Presence of left artificial hip joint; R29.810 Facial weakness; E66.9 Obesity, unspecified; Z68.32 Body mass index [BMI] 32.0-32.9, adult; R50.9 Fever, unspecified; D64.9 Anemia, unspecified; Z98.890 Other specified postprocedural states
CPT/HCPCS: 36415; 71045-TC-FY; 80053; 81003; 82728; 82803; 82962; 83605; 83735; 84100; 84484; 85025; 85027; 85610; 85730; 86140; 87040; 87086; 87651; 87804; 93005; 93010; 97116-GP; 97161-GP; 99285-25; C9399; C9803; G0378; J0131; J1644; M0247; Q0247; U0003; U0005